=== PATIENT | female | born 1995 | race Two or more races ===

== ENCOUNTER 2017-06-17 22:02 | Inpatient (IN) | payer BC ==
[2017-06-17 22:58] LABS: Hematocrit 42 % (35-47); Hemoglobin 14.5 g/dl (12.0-16.0); Mean Corpuscular HGB Conc 34 g/dl (31-36); Mean Corpuscular Hemoglobin 31 pg (27-31); Mean Corpuscular Volume 91 fL (80-97); Mean Platelet Volume 6 um3 (7.4-10.4); Red Blood Count 4.64 10^6/ul (4.0-5.4); Red Cell Distribution Width 14 % (10.5-15); White Blood Count 7.9 10^3/ul (3.5-10.8)
[2017-06-17 23:15] LABS: ALT 16 U/L (7-52); AST 20 U/L (13-39); Albumin 4.6 g/dL (3.2-5.2); Alkaline Phosphatase 33 U/L (34-104); Anion Gap 7 mmol/L (2-11); BUN/Creatinine Ratio 11.3 (8-20); Blood Urea Nitrogen 9 mg/dL (6-24); CO2 Carbon Dioxide 32 mmol/L (22-32); Calcium 9.9 mg/dL (8.6-10.3); Chloride 101 mmol/L (101-111); EGFR African American 116.4 (>60); EGFR Non-African American 90.5 (>60); Globulin 2.9 g/dL (2-4); Glucose 104 mg/dL (70-100); Lipase 100 U/L (11.0-82.0); Potassium 3.4 mmol/L (3.5-5.0); Sodium 140 mmol/L (133-145); Total Protein 7.5 g/dL (6.4-8.9)
--- NOTE | 2017-06-18 01:48 | ED ---
Abdominal Pain/Female - HPI Summary HPI Summary: Pt here w/ ab pain and N/V today since 15:00. Pain is around navel and is "puffy " - burning sensation. She reports this has happened 4 times in the past 1.5 months (since school started). Reports she typically tries light, salty foods and tries to stay hydrated goes to bed and better when she wakes. Denies fever, but does admit to chills at times. Weight loss of 15-20 lbs over past year without trying but admits she bicycled a lot over the summer. Denies hematochezia, dark tarry stools. Had a looser than normal stool. Denies dysuria , frequency, flank pain. Mom wondering if she has an ulcer - pt denies use of NSAID's. Pt feels sx are inconsistent w/ eating. Unable to identify if certain foods are triggering this. Has not tried antacid or PPI as she hasn't had any. - History of Current Complaint Chief Complaint: EDNauseaVomitDiarrh Stated Complaint: NAUSEA/VOMITING Time Seen by Provider: 06/18/17 00:00 Hx Obtained From: Patient Pain Intensity: 7 Allergies/Adverse Reactions: Allergies Allergy/AdvReac Type Severity Reaction Status Date / Time Amoxicillin [From Augmentin] Allergy Unknown Verified 06/17/17 22:17 Reaction Details Clavulanic Acid Allergy Unknown Verified 06/17/17 22:17 [From Augmentin] Reaction Details PMH/Surg Hx/FS Hx/Imm Hx Previously Healthy: Yes Endocrine/Hematology History: Denies: Hx Anticoagulant Therapy, Hx Blood Disorders, Hx Thyroid Disease, Hx Anemia, Hx Unexplained Bleeding, Autoimmune Disease Respiratory History: Reports: Hx Asthma - well controlled GI History: Denies: Hx Cirrhosis, Hx Crohn's Disease, Hx Diverticulosis, Hx Gall Bladder Disease, Hx Gastroesophageal Reflux Disease, Hx Gastrointestinal Bleed, Hx Hiatal Hernia, Hx Irritable Bowel, Hx Obstructive Bowel, Hx Ulcer History: Denies: Hx Kidney Infection, Hx Kidney Stones Infectious Disease History: No Infectious Disease History: Denies: Traveled Outside the [place] in Last 30 Days - Family History Known Family History: Positive: None - Social History Occupation: Student Lives: Dormitory/Roommates Alcohol Use: None Hx Substance Use: No Substance Use Type: Reports: None Hx Tobacco Use: No Smoking Status (MU): Never Smoked Tobacco Review of Systems Constitutional: Other - see HPI Cardiovascular: Negative Negative: Chest Pain Respiratory: Negative Negative: Shortness Of Breath, Cough Gastrointestinal: Other - see HPI Negative: burning, dysuria, discharge, frequency, flank pain, hematuria, incontinence, pain, urgency Musculoskeletal: Negative Skin: Negative Neurological: Negative Negative: Headache Positive: Anxious All Other Systems Reviewed And Are Negative: Yes Physical Exam Triage Information Reviewed: Yes Vital Signs On Initial Exam: Initial Vitals Temp Pulse Resp BP Pulse Ox 98.1 F 80 18 117/76 100 06/17/17 22:15 06/17/17 22:15 06/17/17 22:15 06/17/17 22:15 06/17/17 22:15 Vital Signs Reviewed: Yes Appearance: Positive: Ill-Appearing - appears fatigued and with erythematous/ edematous periorabtal areas, Thin Skin: Positive: Warm, Dry - no ecchymosis Head/Face: Positive: Normal Head/Face Inspection Eyes: Positive: EOMI, MARIE, Conjunctiva Clear, Other: - sclera w/ mild injection. Negative: Conjunctiva Inflammed, Discharge ENT: Positive: Normal ENT inspection, Hearing grossly normal, Pharynx normal - mucosa moist. Negative: Nasal congestion Neck: Positive: Supple, Nontender Respiratory/Lung Sounds: Positive: Clear to Auscultation, Breath Sounds Present. Negative: Rales, Rhonchi, Stridor, Wheezes Cardiovascular: Positive: Normal, RRR, S1, S2 Abdomen Description: Positive: Nontender, No Organomegaly, Soft Bowel Sounds: Positive: Present Musculoskeletal: Positive: Normal, Strength/ROM Intact Neurological: Positive: Normal, Sensory/Motor Intact, Alert, Oriented to Person Place, Time, CN Intact II-III Psychiatric: Positive: Anxious - agitated - Sandy Coma Scale Coma Scale Total: 15 Diagnostics - Vital Signs Vital Signs Temp Pulse Resp BP Pulse Ox 06/17/17 22:15 98.1 F 80 18 117/76 100 - Laboratory Lab Results: Lab Results 06/17/17 06/17/17 Range/Units 22:45 22:45 WBC 7.9 (3.5-10.8) 10^3/ul RBC 4.64 (4.0-5.4) 10^6/ul Hgb 14.5 (12.0-16.0) g/dl Hct 42 (35-47) % MCV 91 (80-97) fL MCH 31 (27-31) pg MCHC 34 (31-36) g/dl RDW 14 (10.5-15) % Plt Count 292 (150-450) 10^3/ul MPV 6 L (7.4-10.4) um3 Sodium 140 (133-145) mmol/L Potassium 3.4 L (3.5-5.0) mmol/L Chloride 101 (101-111) mmol/L Carbon Dioxide 32 (22-32) mmol/L Anion Gap 7 (2-11) mmol/L BUN 9 (6-24) mg/dL Creatinine 0.80 (0.51-0.95) mg/dL Est GFR ( Amer) 116.4 (>60) Est GFR (Non-Af Amer) 90.5 (>60) BUN/Creatinine Ratio 11.3 (8-20) Glucose 104 H (70-100) mg/dL Calcium 9.9 (8.6-10.3) mg/dL Total Bilirubin 0.70 (0.2-1.0) mg/dL AST 20 (13-39) U/L ALT 16 (7-52) U/L Alkaline Phosphatase 33 L (34-104) U/L Total Protein 7.5 (6.4-8.9) g/dL Albumin 4.6 (3.2-5.2) g/dL Globulin 2.9 (2-4) g/dL Albumin/Globulin Ratio 1.6 (1-3) Lipase 100 H (11.0-82.0) U/L Beta HCG, Quant < 0.60 mIU/mL Result Diagrams: 06/17/17 22:45 06/17/17 22:45 Lab Statement: Any lab studies that have been ordered have been reviewed, and results considered in the medical decision making process. Abdominal Pain Fem Course/Dx - Course Course Of Treatment: Pt presents w/ periumbilical ab pain (burning sensation) and nausea with vomiting today. Has h/o same over past 1.5 months - typically resolves after she eats a bland, salty snack of crackers and goes to bed. No previous GI issues. Reports weight loss of 15 +/- lbs over the summer most likely d/t riding her bicycle. Denies hematemesis and hematochezia. Mom concerned about possible ulcer. Pt denies trying antacids, PPI yet. She initially left the ED but upon phone call and request to return for abnormal labs and ingoing sx of N +V + AB PAIN, she returned. Additional labs were added revealing both elevated amylase and lipase. Potassium 3.4. Otherwise, vital signs and labs unremarkable. This could be from choledocolithiasis and/or ulcer. Ab exam is NTTP however pt is somewhat defiant about being here - possibly some gaurding. Ordered IVF and zofran and nausea still present. Additionally ordered GI cocktail in the event she has an ulcer. Will avoid PPI w / elevated pancreatic enzymes until CT returns. Pt sleeping comfortably. Signed out to Dr. Khanna. - Diagnoses Provider Diagnoses: Abdominal pain, Elevated pancreatic enzyme, Nausea and vomiting Discharge - Discharge Plan Condition: Stable Disposition: OTHER Discharge Disposition Comment: signed out to Dr. Khanna
[2017-06-18] MEDS ORDERED: NS 0.9% 1000 ML* 1,000 ML IV ONE (01:58)
[2017-06-18] MEDS ORDERED: Ondansetron INJ* 2 MG/ML VIAL IV ONE ×2 (01:58→04:14)
[2017-06-18 02:17] LABS: Amylase 121 U/L (29-103)
[2017-06-18] MEDS ORDERED: Al Hydrox/Mg Hydrox/Simet LIQ* 30 ML UDC PO ONE (02:40)
[2017-06-18] MEDS ORDERED: Lidocaine 2% VISCOUS* 15 ML UDC PO ONE (02:40)
[2017-06-18] MEDS ORDERED: Iohexol 300* (CONTRAST) 10 ML SDV IV ONE (03:38)
[2017-06-18] MEDS ORDERED: Lidocaine 2% VISCOUS* 15 ML UDC ONE (06:00)
[2017-06-18] MEDS ORDERED: Benzocaine/Butamben/Tetracain* SPRAY ONE (06:57)
[2017-06-18] MEDS ORDERED: HYDROmorphone INJ* 1 MG/ML CARPUJECT SYRINGE IV PRN (07:19)
[2017-06-18] MEDS ORDERED: Benzocaine/Butamben/Tetracain* SPRAY TOPICAL ONE (07:24)
--- NOTE | 2017-06-18 08:04 | RAD ---
INDICATION: Nausea, vomiting, periumbilical pain. Elevated pancreatic enzymes. COMPARISON: Abdomen radiograph of the same date. TECHNIQUE: Multidetector CT images were obtained from the lung bases to the ischial tuberosities with 69 mL Omnipaque 300 IV and oral contrast. Multiplanar reformation. REPORT: Unremarkable visualized inferior thorax. Unremarkable liver. Decompressed gallbladder. Negative for biliary dilatation. Normal morphology pancreas without inflammatory change or focal lesion. Unremarkable spleen. Severe distention of the stomach and first through proximal third segment of the duodenum. Transition point at the third segment of the duodenum where it passes between the superior mesenteric artery and aorta consistent with superior mesenteric artery syndrome. Remainder of the duodenum as well as the jejunum and ilium are decompressed. While the appendix is not discretely visualized, there is no inflammatory change in the right lower quadrant or region of the tip of the cecum to suggest presence of an acute RIGHT lower quadrant inflammatory process. Segments of small to moderate volume of stool in the colon. Physiologic small volume of free fluid in the pelvis. Negative for free air or hernias. Normal adrenal glands. Unremarkable kidneys with symmetric nephrograms and pyelograms. Negative for ureteral dilatation. Unremarkable partially distended urinary bladder as well as the anteverted uterus and RIGHT adnexal region. 1.4 cm water density LEFT ovarian cyst most consistent with a follicular cyst. Negative for lymphadenopathy. In addition to compression of the third segment of the duodenum there is partial compression of the LEFT renal vein between the superior mesenteric artery and the aorta. Normal opacification of the LEFT renal vein without evidence for thrombosis. Unremarkable abdominal aorta and iliac arteries. The inferior vena cava is compressed by the distended proximal third segment of the duodenum inferior to the renal veins. Negative for suspicious osseous lesions. IMPRESSION: The constellation of findings is most consistent with superior mesenteric artery syndrome as described.
--- NOTE | 2017-06-18 08:22 | RAD ---
INDICATION: Check position of NG tube COMPARISON: CT June 18, 2017 TECHNIQUE: A single view of the abdomen is submitted. FINDINGS: Bones: There are no acute bony findings. Soft tissues: The nasogastric tube projects over the body of the stomach. The soft tissues otherwise appear normal. The psoas margins are sharp. Bowel gas pattern: Normal.. There is interval decompression of the stomach via nasogastric tube placement. There is residual contrast within the renal collecting systems and bladder from earlier CT imaging Calcifications: There are no abnormal calcifications. Other: None IMPRESSION: INTERVAL DECOMPRESSION OF THE STOMACH. NO CURRENT PLAIN RADIOGRAPHIC ABNORMALITIES.
[2017-06-18] MEDS ORDERED: Benzocaine/Butamben/Tetracain* SPRAY TOPICAL PRN (09:00)
--- NOTE | 2017-06-18 09:39 | HP ---
CC: [facility] * HISTORY AND PHYSICAL: DATE OF ADMISSION: 06/18/17 HISTORY OF PRESENT ILLNESS: I was contacted by the emergency room to evaluate Ms. Gaytan, a 21-year-old female who presents to [facility] with complaints of nausea and vomiting since 3 o'clock yesterday afternoon. She is accompanied with abdominal pain. The patient is unable to keep anything down. 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 The patient describes a diffuse abdominal pain that is tolerable, no aggravating or alleviating factors. Currently, she is not in pain. Pain is nonradiating. The patient last passed gas yesterday. She had a bowel movement over a day ago. She denies any fevers or chills. The patient describes approximately 15 to 20-pound weight loss over the course of the last year. She was not trying to lose weight. PAST MEDICAL HISTORY: None. PAST SURGICAL HISTORY: None. MEDICATIONS: None. ALLERGIES: AMOXICILLIN and CLAVULANIC ACID. SOCIAL HISTORY: The patient is a nonsmoker. 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 REVIEW OF SYSTEMS: Weight loss as described above. No shortness of breath or chest pain. Abdominal complaints as described. No dysuria or hematuria. No bloody bowel movements. Vomiting has been bilious and non-bloody. No bleeding or clotting disorders. No hospitalization. No psychiatric illnesses. No metabolic disorders. PHYSICAL EXAMINATION GENERAL: She is alert and oriented x3, in mild distress. She is tearful. VITAL SIGNS: She is afebrile, 99.1. Blood pressure 92/100 systolic with a heart rate of 60s, O2 sat 100, respirations 16. HEENT: Sclerae anicteric. Mucous membranes are moist. LUNGS: Clear to auscultation. ABDOMEN: Soft on the right side, distended on the left, but minimally tender only on deep palpation throughout. No hernias or masses. EXTREMITIES: Within normal limits. RECTAL: Rectal exam is not performed. BACK: No CVA tenderness. No hernias. DIAGNOSTIC STUDIES/LAB DATA: The patient's labs show a white count of 7.9. Chemistry panel that shows potassium of 3.4, amylase 121, lipase 100, creatinine 0.8, carbon dioxide of 32, lactic of 0.9. The patient underwent a CAT of the abdomen and pelvis. These images as well as the overnight read had been reviewed, essentially non-p.o. contrast, but a positive IV contrast study. The patient shows markedly distended stomach into the first and second portion of the duodenum. I do not fully appreciate the third portion the duodenum and the overnight read considers a midgut malrotation and volvulus with transposition of the superior mesenteric artery and vein. There is gas in the colon, vasculature is well lit up on the CT. IMPRESSION: Massive stomach dilation that could be secondary to midgut volvulus , this could likely represent acute on chronic. The patient is clinically stable right now without signs of ischemia, strangulation. If this is indeed the diagnosis, I would like to review the study with another radiologist. I did discuss this with the overnight radiologist as well. An NG tube was placed by me, but only 500 cc of light green fluid was drained. The patient complained significantly about discomfort in the back of her throat and dryness. We will treat her with Xylocaine spray at this site. We will maintain n.p.o. status and IV fluids. I will likely send patient for an upper GI study versus a trip to the operating room for a laparotomy versus diagnostic laparoscopy. I briefly touched base with her mother, who had only very few questions and stated that she would be on her way. The patient will be admitted to my service and we will continue all of our evaluation. [id number]/[facility] #: [id number] KATH
[2017-06-18 17:11] LABS: Urine Bacteria Absent (Absent); Urine Bilirubin Negative (Negative); Urine Glucose Negative (Negative); Urine Nitrite Negative (Negative)
--- NOTE | 2017-06-18 23:35 | CONS ---
CC: Dr. Matthews; [facility] * CONSULTATION REPORT: DATE OF CONSULTATION: 06/18/17 REQUESTING PHYSICIAN: Dr. Matthews. INDICATIONS: Nausea and vomiting. NARRATIVE: Ms. 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 The patient states that the nausea and vomiting became severe yesterday. She has had this happen to her before approximately a month ago, she had similar symptoms. Her mother who is a physician thought that she was simply experiencing gastroenteritis. The patient does have mild to moderate abdominal pain. The patient denied eating anything out of the ordinary. She denies taking any aspirin or ibuprofen. She is passing gas. She has a bowel movement at least every other day. She has also lost approximately 20 pounds according to her, she states that this is all unintentional. PAST MEDICAL HISTORY: None. PAST SURGICAL HISTORY: None. CURRENT MEDICATIONS: None. ALLERGIES: To AMOXICILLIN and CLAVULANIC ACID. SOCIAL HISTORY: She denies any tobacco, alcohol, or IV drug use. REVIEW OF SYSTEMS: Twelve systems were reviewed, other than that mentioned in the HPI were unremarkable. PHYSICAL EXAM: Vital Signs: Temperature is 99.4, blood pressure 98/60, pulse is 90, respiratory rate of 14, O2 sat is 100%. General: Slight ill appearance. HEENT: Mucous membranes are moist. She does have an NG tube in. Heart: Regular rate and rhythm. Lungs: Clear to auscultation bilaterally. No wheezes, rales, or rhonchi. Abdomen: Hypoactive bowel sounds. Soft, nontender. No masses are felt. Skin: Warm and dry. DIAGNOSTIC STUDIES/LAB DATA: White count 7.9, hemoglobin is 14.5, platelets of 292,000. Sodium is 140, potassium is 3.4, glucose of 104, alk phos 33, amylase 121, lipase of 100. She has a CT abdomen and pelvis, which shows changes consistent with superior mesenteric artery syndrome. ASSESSMENT AND PLAN: Ms. Gaytan is a pleasant 21-year-old student, who presents with likely superior mesenteric artery syndrome. Surgery has admitted the patient. They have requested an upper endoscopy to further evaluate her small bowel for any other potential causes of her duodenal obstruction. She definitely will need a nutritional consult. Likely her symptoms have been exacerbated by her weight loss. Nutrition is going to be the rodriguez in order to try and prevent surgery. We will plan for an upper endoscopy tomorrow. [id number]/[facility] #: [id number] MTDD
[2017-06-19 06:59] LABS: Hematocrit 38 % (35-47); Hemoglobin 12.9 g/dl (12.0-16.0); Mean Corpuscular HGB Conc 34 g/dl (31-36); Mean Corpuscular Hemoglobin 31 pg (27-31); Mean Corpuscular Volume 92 fL (80-97); Mean Platelet Volume 6 um3 (7.4-10.4); Red Blood Count 4.14 10^6/ul (4.0-5.4); Red Cell Distribution Width 14 % (10.5-15); White Blood Count 8.4 10^3/ul (3.5-10.8)
[2017-06-19 07:14] LABS: Albumin 3.6 g/dL (3.2-5.2); BUN/Creatinine Ratio 15.3 (8-20); C Reactive Protein 8.32 mg/L (< 5.00); Calcium 8.7 mg/dL (8.6-10.3); EGFR African American 131.5 (>60); EGFR Non-African American 102.3 (>60); Globulin 2.5 g/dL (2-4); Potassium 3.7 mmol/L (3.5-5.0); Total Protein 6.1 g/dL (6.4-8.9)
[2017-06-19] MEDS ORDERED: Influenza VAC *QUAD* 2017-18* 0.5 ML SYRINGE IM ONE (09:00)
--- NOTE | 2017-06-19 13:02 | ED ---
Nicci Linares Alfonso, scribed for Sherif Khanna MD on 06/18/17 at 0535 . Progress - Progress Note Progress Note: This patient was signed out by Ms. Reardon. She requested I follow up the CT A/P. Consulted Dr. Matthews (surgeon) at 0544 who recommended an NG tube and he will accept the patient for admission. The patient is hemodynamically stable and alert and oriented x3. VITAL SIGNS: Reviewed. GENERAL: Patient is a thin female who is lying comfortable in the stretcher. Patient is not in any acute respiratory distress. HEAD AND FACE: Normocephalic and atraumatic. EYES: PERRLA, EOMI x 2, No injected conjunctiva. EARS: Hearing grossly intact. Ear canals and tympanic membranes are WNL. MOUTH: Oropharynx within normal limits. NECK: Supple, trachea is midline, no adenopathy, no JVD. CHEST: Symmetric, no tenderness at palpation LUNGS: Clear to auscultation bilaterally. No wheezing or crackles. CVS: RRR, S1 and S2 present, no murmurs or gallops appreciated. ABDOMEN: Flat stomach. Positive epigastric and periumbilical tenderness. Soft. No signs of distention. Positive bowel sounds. No rebound no guarding, and no masses palpated. No abdominal bruit or pulsations. EXTREMITIES: FROM in all major joints, no edema, no cyanosis or clubbing. NEURO: Alert and oriented x 3. No acute neurological deficits. Speech is normal. SKIN: Dry and warm The patient is hemodynamically stable and alert and oriented x3. - Results/Orders Results/Orders: CT A/P reveals, per radiologist, mid gut malrotation and volvulus. ED physician has reviewed this radiology report and agrees. Course/Dx - Course Course Of Treatment: Patient signed out by Ms. Isaac. Abdominal and pelvic CT shows a volvulus. Discussed the case with Dr. Matthews. He accepted patient for admission. Patient hemodinamically stable and A+O x 3. - Diagnoses Provider Diagnoses: Abdominal pain, Elevated pancreatic enzyme, Nausea and vomiting - Provider Notifications Time Discussed With Above Provider: 05:39 Instructed by Provider To: Other - Consulted Dr. Morales (GI) who recommended surgery consult. .Consulted Dr. Matthews (surgeon) at 0544 who recommended an NG tube and he will accept the patient for admission. The documentation as recorded by the Nicci moncada Alfonso accurately reflects the service I personally performed and the decisions made by , Sherif Khanna MD.
[2017-06-19] MEDS ORDERED: Meperidine SYRINGE* 50 MG/ML ONE (14:22)
[2017-06-19] MEDS ORDERED: Midazolam* 1 MG/ML 10 ML VIAL (10 MG) ONE (14:22)
--- NOTE | 2017-06-19 15:55 | PN ---
Progress Note - Progress Note Date of Service: 06/19/17 SOAP: Subjective: pt seen and examined. No complaints. For EGD today, and case d/x GI: no intraluminal findings Positive flatus, no nausea. Objective: af vss abdo: soft/ ND/ NT CT reviewed yesterday with radiologist-- no evidence of malrotation. No volvulus. concerning for SMA syndrome Labs noted Assessment: partial duodenal obstruction, possible SMA syndrome. Plan: UGI in am restart clears Nutrition consult d/c planning- pt's parents would like her to be closer to home.
--- NOTE | 2017-06-20 01:54 | PRO ---
DATE: 06/19/17 - ROOM #[id number] REFERRING PHYSICIAN: Dr. Lars Matthews, [facility] * PROCEDURE: Upper gastrointestinal endoscopy and CLOtest. 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 She has had several such attacks over the last 5 to 6 weeks since arriving back on campus. She has never had any such nausea and vomiting for first 3 years at [employer]. Per chart review and her parents, she did start restricting her intake possibly up to a year ago and lost 25 to 30 pounds. This was intentional. There was no vomiting involved. 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 She has no history of peptic disease. She is not using NSAIDs. There is no family history of peptic disorder, although her mother has been treated for H pylori. Her mother is a medical doctor nuclear medicine practicing in [place] and her father a finisher operator. ENDOSCOPIST: Dr. Griffiths. MEDICATIONS: Midazolam 6, meperidine 50. FINDINGS: She is a slender young woman with NG tube in place. No overt distress. EGD: Larynx - some laryngeal edema is noted, but no erythema or bleeding or mucosal erosion. Esophagus - easily entered. The mucosa is normal in the upper, mid, and lower esophagus with the EG junction at 40 through which the NG is transiting. There are no inflammatory signs or bleeding. Stomach - generally normal mucosa in the cardia, fundus, body and antrum. The NG tube is extending into the stomach about 15 cm. There is no bleeding. The rugal folds appear normal. The antrum appears normal. A CLOtest was taken and 2 biopsies, mid greater curvature. Duodenum - the pylorus, bulb, and second and third portions appear normal. Views were obtained and estimated 7 to 8 cm beyond the papilla. The insertion may have been a little less than average for an exam with striking efforts to get as far as possible (including left upper quadrant hand lift by the nurse). This might be anticipated with a slender body build and redundant stomach. No inflammatory signs were seen in the duodenum. IMPRESSION: 1. Normal EGD - CLOtest and gastric biopsy pending. 2. Nausea and vomiting - this exam is not diagnostic, but compatible with a ___ __ syndrome coming in to clinical picture after a voluntary weight loss. The patient will be offered that the NG tube removed in a couple of hours to go on a liquid diet after which a dietary consult and follow up with the eating disorder clinic at [facility] would be appropriate. [id number]/[facility] #: [id number] KATH
[2017-06-20 10:16] VITALS: BP 103/65
--- NOTE | 2017-06-20 10:19 | RAD ---
INDICATION: Small bowel obstruction at the duodenum. COMPARISON: Comparison is made with a prior CT of the abdomen and pelvis from June 18, 2017. Technique: A double contrast upper GI series examination was performed followed by a small bowel follow-through. Approximately 1.8 minutes of intermittent fluoroscopic guidance were used during the exam. Findings: The esophageal peristalsis appeared normal. No hiatal hernia or gastroesophageal reflux was noted. The esophageal, gastric and duodenal mucosal pattern appeared to be within normal limits. No persistent filling defect or collection of barium was present. There was no evidence for mass or inflammatory change. The stomach emptied normally. The previously noted obstruction of the third portion of the duodenum which appeared to be secondary to compression by the superior mesenteric artery on the prior CT study has resolved. The patient was given an additional thin barium and a single film of the abdomen was obtained demonstrating normal opacification of the proximal small bowel which is normal in position. IMPRESSION: INTERVAL RESOLUTION OF THE PREVIOUSLY NOTED OBSTRUCTION OF THE HORIZONTAL PORTION OF THE DUODENUM. CPT II Codes: 6045F
--- NOTE | 2017-06-21 00:14 | DS ---
CC: [facility] DISCHARGE SUMMARY: DATE OF ADMISSION: 06/18/17 DATE OF DISCHARGE: 06/20/17 HISTORY OF PRESENT ILLNESS: Ms. Gaytan is a 21-year-old female who presented in the overnight period from June 17 and June 18 with nausea, vomiting, and abdominal pain. Workup in the emergenc y room included CAT scan and labs. CAT scan was suspicious earlier on for a small bowel volvulus. Surgery was called or consulted and reviewed the CT scan and disagreed with this and treated her wit h NG tube drainage of a massively dilated stomach and IV fluids and then reviewed the radiology with our staff and consideration for a duodenal obstruction possibly from an SMA or superior mesenteric artery syndrome was entertained. The patient felt better with decompression and was admitted for is purpose, given IV fluids. NG tube was maintained and the patient was sent for an EGD on hospital day #2. EGD was within normal limits just to the beginning of the third portion of the duodenum. There were no lesions and this was stopped. The patient had her NG tube removed and she was started on sips of clears and by hospital day #3, she underwent an upper GI study, which again showed contr ast flow into the distal bowel took a little extra time to get through the duodenum, but otherwise n o obstruction. The patient was started on full liquid diet and I discussed with her the importance of staying with liquid diet for now to help prevent recurrence. The patient has described a months history of intermittent episodes like this. It seems reasonable, but the patient is suffering with SMA syndrome. Differential diagnosis does include anorexia nervo sa. I have discussed at length with the patient as well as her father and mother the importance of going forward of nutrition. The patient has lost close to 20 pounds in the course of the last year. The patient states she was not trying to on admission, but discussion with her mother would suggest otherwise. The patient has resolved this duodenal pseudoobstruction of unclear etiology with differential stron gly favoring superior mesenteric artery syndrome. I do not feel comfortable operating on this at [facility], would rather help with her nutrition and I know after speaking to her mom who is the physi bernadette she would like her closer to her home in [place]. The patient wishes to continue her studies a t [place] and her parents would like her to come home. I think it is more prudent for her to go [place] [facility]. Of course, she can make her own decisions, but I did spend time talking to her as well as her pa rents about making a deal with what she would do going forward. The patient may very likely ended u p in our emergency room with an obstruction again and we will treat it most likely in a similar our [facility] before thinking of surgical options. The patient should be followed up at the [facility] an d may be even [facility] for evaluation of potential for eating disorders, but currently as it stands, thi s seems to be an anatomic finding within the vasculature that could be the driving factor with her i ntermittent partial duodenal obstruction. I feel comfortable discharging her now especially to her parents along with the physician. I would like to see her in my office to set up a followup appoint ment because there has been no other surgeon whom I have spoken to in their community. I will be ram ppy to speak to any and the patient's mother knows this. We will set up an appointment for 2 weeks from now to see where she stands. Otherwise, she will stay on a high protein liquid diet for the carter e being and frequent weigh ins. I have asked the parents to get a scale for her to weigh herself re gularly. There will be no prescriptions on discharge. The patient is not on home medications and she will no t restart and there is nothing to restart. TIME SPENT: Overall 40 minutes was spent with this discharge mostly [id number] and talking with o ther providers. [id number]/[facility] #: [id number]
== END 2017-06-20 13:05 | disposition home or self-care (01) | DRG 247 ==
LOC: ED 22:02 → SSU 06-18 07:19
PROVIDERS: ADMIT Surgery; ATTEND Surgery
PROC: 0DD68ZX Extraction of Stomach, Via Natural or Artificial Opening Endoscopic, Diagnostic (ICD-10-PCS; principal; 2017-06-19)
DX: K31.5 Obstruction of duodenum (principal); K55.1 Chronic vascular disorders of intestine; Z88.1 Allergy status to other antibiotic agents; Z88.8 Allergy status to other drugs, medicaments and biological substances
CPT/HCPCS: 36415; 74000; 74177; 74249; 80053; 81003; 81015; 82150; 83605; 83690; 84702; 85025; 85027; 86140; 87077; 88305; 90686; 99156; 99157; A9270-GY; J2250; J2310; J2405; Q9967